=== PATIENT | male | born 1980 | race Two or more races ===

== ENCOUNTER 2021-01-16 22:52 | Emergency (ER) | payer OTHER ==
[~2021-01-16] VITALS: Ht 182.9 cm; Wt 72.6 kg
[2021-01-16] MEDS ORDERED: ONDANSETRON HCL/PF 4 MG/2 ML VIAL IVP ONE (23:30)
[2021-01-16] MEDS ORDERED: MORPHINE SULFATE INJ 2 MG/ML DISP.SYRIN IV ONE (23:30)
[2021-01-16] MEDS ORDERED: IV NS 0.9% 500 ML BAG IV ONE (23:30)
[2021-01-16] MEDS ORDERED: ONDANSETRON HCL/PF 4 MG/2 ML VIAL ONE (23:33)
[2021-01-16] MEDS ORDERED: MORPHINE SULFATE INJ 4 MG/ML DISP.SYRIN ONE (23:34)
--- NOTE | 2021-01-16 23:49 | NUR ---
BIBRA C/O R HIP PAIN 9 X3 DAYS NON TRAUMATIC. PT BREATHING EVEN AND UNALBORED PLACED ON MONITOR ALL V/S STABLE. IV STARTED 20G L HAND BLOOD COLLECTED AND SENT TO LAB.
[2021-01-17 00:34] LABS: BASOPHILS % (AUTO) 0.5 % (0.0-2.0); EOSINOPHILS % (AUTO) 2.1 % (0.0-6.0); HEMATOCRIT 36 % (39-51); HEMOGLOBIN 11.9 g/dL (13.5-17.5); LYMPHOCYTES # (AUTO) 0.6 K/uL (0.8-4.8); MEAN CORPUSCULAR HGB CONC 33 g/dl (31.0-36.0); MEAN CORPUSCULAR VOLUME 84 fL (80-96); MONOCYTES # (AUTO) 0.3 K/uL (0.1-1.30); MONOCYTES % (AUTO) 7.1 % (2.0-12.0); NEUTROPHILS # (AUTO) 3.4 K/uL (1.8-8.9); NEUTROPHILS % (AUTO) 76.3 % (43.0-81.0); PLATELET COUNT (AUTO) 272 K/uL (150-450); RED BLOOD CELL COUNT(AUTO) 4.23 MIL/uL (4.5-6.0); WHITE BLOOD COUNT (AUTO) 4.4 K/uL (4.3-11.0)
[2021-01-17] MEDS ORDERED: IOHEXOL-300 100 ML VIAL IV ONE (01:17)
[2021-01-17 01:18] LABS: POTASSIUM 3.7 mmol/L (3.5-5.1)
[2021-01-17] MEDS ORDERED: CT SWABBABLE VALVE TRANS SET 1 EA INFUS.SET MC ONE (01:18)
[2021-01-17] MEDS ORDERED: IV NS 0.9% 250 ML IV ONE ×2 (01:18→02:43)
--- NOTE | 2021-01-17 01:48 | NUR ---
PT RETURN FROM CT VIA [facility].
[2021-01-17] MEDS ORDERED: IOHEXOL-350 100 ML VIAL IV ONE (02:41)
[2021-01-17] MEDS ORDERED: MORPHINE SULFATE INJ 4 MG/ML DISP.SYRIN ONE (02:58)
[2021-01-17] MEDS ORDERED: IV NS 0.9% 1,000 ML BAG IV ONE (03:00)
[2021-01-17] MEDS ORDERED: MORPHINE SULFATE INJ 2 MG/ML DISP.SYRIN IV ONE (03:00)
--- NOTE | 2021-01-17 03:00 | NUR ---
COVID SWAB SENT TO LAB
--- NOTE | 2021-01-17 03:00 | NUR ---
LEFT FOR CT
--- NOTE | 2021-01-17 03:16 | NUR ---
[facility]
--- NOTE | 2021-01-17 03:32 | NUR ---
PT SLEEPING COMFORTABLY BREATHING EVEN AND UNLABORED EASILY AROUSABLE. ALL V/S STABLE. WILL CONTINUE TO MONITOR.
--- NOTE | 2021-01-17 04:04 | NUR ---
CLINICAL INFO GIVEN TO BRIANA PAY STATION COLLECTOR, OVER THE PHONE
--- NOTE | 2021-01-17 04:38 | NUR ---
[facility] CALL WITH COVID RESULTS
--- NOTE | 2021-01-17 05:58 | NUR ---
ACCORDING TO SOPHY RICHARDS [employer]SE SUPERVISOR: PT IS ACCEPTED AT [facility] BY DR DAVEY IVY GOING TO BED 780-A # FOR REPORT: [facility] W/ ETA:[id number] TRANSPORTATION AUTH # [id number]
--- NOTE | 2021-01-17 07:47 | NUR ---
CALLED [facility] FOR TRANSPORT ETA 0931 PER DESIREE
--- NOTE | 2021-01-17 07:49 | NUR ---
ASSESSED PT ON BED ASLEEP EASILY AROUSABLE, AAOX4, NOT IN RESPIRATORY DISTRESS, V/S STABLE, KEPT RESTED AND COMFORTABLE. WILL CONTINUE TO MONITOR.
--- NOTE | 2021-01-17 07:53 | NUR ---
CALLED [facility] FOR REPORT RN NOT AVAILABLE. WILL CALL BACK AT 8AM.
--- NOTE | 2021-01-17 08:44 | NUR ---
REPORT GIVEN TO JULITO ZHANG FOR [facility].
[2021-01-17 09:04] VITALS: BP 115/62
--- NOTE | 2021-01-17 09:05 | NUR ---
REPORT GIVEN TO EMS FOR PT TRANSFER TO [facility].
== END 2021-01-17 09:13 | disposition short-term general hospital (02) ==
LOC: ER 22:57
DX: M00.9 Pyogenic arthritis, unspecified (principal); R01.1 Cardiac murmur, unspecified; Z59.00 Homelessness unspecified; R91.8 Other nonspecific abnormal finding of lung field
CPT/HCPCS: 36415 ×2; 71275; 73502; 74177; 80048; 83605; 84145; 85025; 85652; 85730; 86140; 87040 ×2; 87426; 96361 ×2; 96374; 96375; 96376; 99285; C9803; J2270 ×2; J2405; J7030; J7040; J7050 ×2; Q9967 ×2